=== PATIENT | female | born 1940 | race Caucasian/White ===

== ENCOUNTER 2018-11-26 21:02 | Emergency (ER) | payer MEDICARE, MEDICAID ==
[~2018-11-26] VITALS: Ht 165.1 cm; Wt 62.0 kg
[2018-11-26 21:44] LABS: BASOPHILS % 0.5 % (0.0-2.0); EOSINOPHILS % 2.7 % (0.0-5.0); HEMATOCRIT. 34.3 % (36.0-48.0); HEMOGLOBIN. 11.4 g/dL (12.0-16.0); LYMPHOCYTES % 40.2 % (20.0-50.0); MEAN CORPUSCULAR HEMOGLOBIN 31.6 pg (28.0-32.0); MEAN CORPUSCULAR VOLUME 95.3 fL (81.0-99.0); MEAN PLATELET VOLUME 9.3 fl (7.4-10.4); MONOCYTES % 12.1 % (2.0-8.0); NEUTROPHILS % 44.5 % (40.0-76.0); PLATELET 125 x1000/uL (130-400); RED BLOOD CELL COUNT 3.59 mill/uL (4.2-5.4); RED CELL DISTRIBUTION WIDTH 16.3 % (11.6-14.6)
[2018-11-26 21:46] LABS: CHLORIDE 111 mEq/L (98-107)
[2018-11-26 22:55] VITALS: BP 139/83
== END 2018-11-26 22:55 | disposition home or self-care (01) ==
LOC: ER 21:02
DX: R07.9 Chest pain, unspecified (principal); E11.9 Type 2 diabetes mellitus without complications; I10 Essential (primary) hypertension
CPT/HCPCS: 36415; 71045; 83880; 84484; 93005; 99284

== ENCOUNTER 2021-10-24 17:07 | Inpatient (IN) | payer MEDICARE, MEDICAID ==
[~2021-10-24] VITALS: Ht 157.5 cm; Wt 67.6 kg
[2021-10-24] MEDS ORDERED: MORPHINE SULFATE 4 MG/ML CPJ (NOT FOR IM USE) IV STA (18:12)
[2021-10-24 18:46] LABS: HEMOGLOBIN. 9.9 g/dL (12.0-16.0); MEAN CORPUSCULAR HEMOGLOBIN 35.6 pg (28.0-32.0); MEAN CORPUSCULAR VOLUME 111.5 fL (81.0-99.0); PLATELET 177 x1000/uL (130-400); RED BLOOD CELL COUNT 2.78 mill/uL (4.2-5.4); RED CELL DISTRIBUTION WIDTH 15.3 % (11.6-14.6)
[2021-10-24 18:54] LABS: CHLORIDE 107 mEq/L (98-107)
[2021-10-24 19:33] LABS: PLATELET ESTIMATE NORMAL
[2021-10-25] MEDS ORDERED: MORPHINE SULFATE 2 MG/ML CPJ (NOT FOR IM USE) IV ONE (09:00)
[2021-10-25 14:10] VITALS: BP 115/58
[2021-10-25] MEDS ORDERED: CLONIDINE 0.1MG TABLET PO PRN ×2 (14:30→15:30)
[2021-10-25] MEDS ORDERED: DEXTROSE 50% WATER 50ML SYRINGE IV PRN (14:45)
[2021-10-25] MEDS ORDERED: ACETAMINOPHEN 325MG TABLET PO PRN (15:30)
[2021-10-25] MEDS ORDERED: DIPHENHYDRAMINE 50MG/ML VIAL IV PRN (15:30)
[2021-10-25] MEDS ORDERED: ONDANSETRON HCL 4MG/2ML INJ IV PRN (15:30)
[2021-10-25] MEDS ORDERED: MAGNESIUM/ALUMINUM HYDROXIDE/SIMETHICONE 30ML UDC PO PRN (15:30)
[2021-10-25] MEDS ORDERED: ZOLPIDEM TARTRATE 5MG TABLET PO PRN (15:30)
[2021-10-25] MEDS ORDERED: NALOXONE HCL 0.4MG/ML VIAL IV PRN (15:45)
[2021-10-25 15:46] VITALS: BP 117/59
[2021-10-25 16:00] VITALS: BP 117/59
[2021-10-25] MEDS ORDERED: LISI2.5T47 MT (16:07)
[2021-10-25] MEDS ORDERED: GLIP5TAB12 MT (16:07)
[2021-10-25] MEDS ORDERED: GABA-529 MT (16:07)
[2021-10-25] MEDS: DOCUSATE SODIUM 100MG CAPSULE PO SCH (16:38)
[2021-10-25] MEDS: HYDROCODONE/ACETAMINOPHEN 5/325MG TABLET PO PRN (16:39)
[2021-10-25] MEDS: INSULIN LISPRO 100 UNITS/ML SUBCUT SCH ×2 (16:40→21:49)
[2021-10-25] MEDS: ENOXAPARIN 30MG/0.3ML SYR SUBCUT SCH (16:40)
[2021-10-25] MEDS: BLOOD SUGAR DIAGNOSTIC STRIP TEST SCH ×2 (16:40→21:49)
[2021-10-25 20:00] VITALS: BP 111/61
[2021-10-25] MEDS: OMEPRAZOLE 20MG CAPSULE EXTENDED RELEASE PO SCH (21:48)
[2021-10-25] MEDS: SODIUM CHLORIDE 0.9% INJ 3ML FLUSH IVF SCH (21:49)
[2021-10-26] VITALS: BP 112/63
[2021-10-26 04:00] VITALS: BP 129/66
[2021-10-26] MEDS: SODIUM CHLORIDE 0.9% INJ 3ML FLUSH IVF SCH ×3 (05:31→23:34)
[2021-10-26] MEDS: OMEPRAZOLE 20MG CAPSULE EXTENDED RELEASE PO SCH ×2 (06:22→23:33)
[2021-10-26] MEDS: BLOOD SUGAR DIAGNOSTIC STRIP TEST SCH ×4 (06:32→21:00)
[2021-10-26] MEDS: INSULIN LISPRO 100 UNITS/ML SUBCUT SCH ×4 (06:32→21:00)
[2021-10-26] MEDS: MORPHINE SULFATE 2 MG/ML CPJ (NOT FOR IM USE) IV PRN (07:57)
[2021-10-26 08:00] VITALS: BP 131/63
[2021-10-26] MEDS: DOCUSATE SODIUM 100MG CAPSULE PO SCH ×2 (09:47→18:20)
[2021-10-26 11:50] VITALS: BP 123/66
[2021-10-26] MEDS: HYDROCODONE/ACETAMINOPHEN 5/325MG TABLET PO PRN ×2 (14:23→23:12)
[2021-10-26] MEDS: ENOXAPARIN 30MG/0.3ML SYR SUBCUT SCH (18:20)
[2021-10-26 20:00] VITALS: BP 133/60
[2021-10-27] VITALS: BP 136/67
[2021-10-27 04:00] VITALS: BP 145/67
[2021-10-27] MEDS: HYDROCODONE/ACETAMINOPHEN 5/325MG TABLET PO PRN ×3 (04:44→21:28)
[2021-10-27] MEDS: SODIUM CHLORIDE 0.9% INJ 3ML FLUSH IVF SCH ×3 (06:00→21:28)
[2021-10-27 06:53] LABS: HEMATOCRIT. 27.4 % (36.0-48.0); MEAN CORPUSCULAR HEMOGLOBIN 35.8 pg (28.0-32.0); MEAN CORPUSCULAR VOLUME 108.7 fL (81.0-99.0); MEAN PLATELET VOLUME 7.9 fl (7.4-10.4); PLATELET 139 x1000/uL (130-400); RED BLOOD CELL COUNT 2.52 mill/uL (4.2-5.4); RED CELL DISTRIBUTION WIDTH 14.8 % (11.6-14.6)
[2021-10-27] MEDS: INSULIN LISPRO 100 UNITS/ML SUBCUT SCH ×4 (07:50→21:00)
[2021-10-27] MEDS: BLOOD SUGAR DIAGNOSTIC STRIP TEST SCH ×4 (07:55→21:05)
[2021-10-27 08:00] VITALS: BP 130/68
[2021-10-27 08:12] LABS: PLATELET ESTIMATE NORMAL
[2021-10-27] MEDS: DOCUSATE SODIUM 100MG CAPSULE PO SCH ×2 (09:27→17:27)
[2021-10-27] MEDS: FAMOTIDINE 20MG TABLET PO SCH (09:28)
[2021-10-27 12:00] VITALS: BP 139/74
[2021-10-27 16:00] VITALS: BP 114/54
[2021-10-27] MEDS: ENOXAPARIN 30MG/0.3ML SYR SUBCUT SCH (17:28)
[2021-10-27 20:00] VITALS: BP 135/59
[2021-10-28] VITALS: BP 123/68
[2021-10-28 04:00] VITALS: BP 106/70
[2021-10-28] MEDS: HYDROCODONE/ACETAMINOPHEN 5/325MG TABLET PO PRN ×3 (04:15→17:38)
[2021-10-28] MEDS: SODIUM CHLORIDE 0.9% INJ 3ML FLUSH IVF SCH ×3 (05:27→23:12)
[2021-10-28] MEDS: BLOOD SUGAR DIAGNOSTIC STRIP TEST SCH ×4 (06:28→21:00)
[2021-10-28] MEDS: INSULIN LISPRO 100 UNITS/ML SUBCUT SCH ×4 (07:37→21:00)
[2021-10-28 08:00] VITALS: BP 136/69
[2021-10-28] MEDS: FAMOTIDINE 20MG TABLET PO SCH (08:45)
[2021-10-28] MEDS: DOCUSATE SODIUM 100MG CAPSULE PO SCH ×2 (08:46→17:24)
[2021-10-28 12:00] VITALS: BP_SYST 131; BP_DIAS 61; BP_DIAS 65
[2021-10-28 16:00] VITALS: BP 136/68
[2021-10-28] MEDS: ENOXAPARIN 30MG/0.3ML SYR SUBCUT SCH (17:25)
[2021-10-28 20:00] VITALS: BP 103/54
[2021-10-28] MEDS: ACETAMINOPHEN 325MG TABLET PO PRN (23:20)
[2021-10-29] VITALS: BP 108/55
[2021-10-29 04:00] VITALS: BP 107/45
[2021-10-29] MEDS: SODIUM CHLORIDE 0.9% INJ 3ML FLUSH IVF SCH ×3 (06:46→22:00)
[2021-10-29] MEDS: MORPHINE SULFATE 2 MG/ML CPJ (NOT FOR IM USE) IV PRN (06:53)
[2021-10-29] MEDS: BLOOD SUGAR DIAGNOSTIC STRIP TEST SCH ×4 (07:20→21:59)
[2021-10-29] MEDS: INSULIN LISPRO 100 UNITS/ML SUBCUT SCH ×4 (07:50→21:00)
[2021-10-29 08:00] VITALS: BP 135/69
[2021-10-29] MEDS: DOCUSATE SODIUM 100MG CAPSULE PO SCH ×2 (08:58→18:04)
[2021-10-29] MEDS: FAMOTIDINE 20MG TABLET PO SCH (08:58)
[2021-10-29 12:00] VITALS: BP 122/61
[2021-10-29] MEDS: ENOXAPARIN 30MG/0.3ML SYR SUBCUT SCH (18:04)
[2021-10-29 20:00] VITALS: BP 142/71
[2021-10-29] MEDS: HYDROCODONE/ACETAMINOPHEN 5/325MG TABLET PO PRN (22:01)
[2021-10-30] VITALS (7 sets, daily range): BP systolic 120–150; BP diastolic 56–100
[2021-10-30] MEDS: BLOOD SUGAR DIAGNOSTIC STRIP TEST SCH ×4 (05:37→20:05)
[2021-10-30] MEDS: SODIUM CHLORIDE 0.9% INJ 3ML FLUSH IVF SCH ×3 (05:37→20:05)
[2021-10-30] MEDS: HYDROCODONE/ACETAMINOPHEN 5/325MG TABLET PO PRN (05:43)
[2021-10-30] MEDS: INSULIN LISPRO 100 UNITS/ML SUBCUT SCH ×4 (07:50→20:05)
[2021-10-30] MEDS: DOCUSATE SODIUM 100MG CAPSULE PO SCH ×2 (08:21→16:42)
[2021-10-30] MEDS: FAMOTIDINE 20MG TABLET PO SCH (08:21)
[2021-10-30] MEDS: MORPHINE SULFATE 2 MG/ML CPJ (NOT FOR IM USE) IV PRN (12:29)
[2021-10-30] MEDS: ENOXAPARIN 30MG/0.3ML SYR SUBCUT SCH (16:41)
[2021-10-30] MEDS: ACETAMINOPHEN 325MG TABLET PO PRN (20:53)
[2021-10-30 21:56] LABS: BASOPHILS % 0.8 % (0.0-2.0); EOSINOPHILS % 3.3 % (0.0-5.0); HEMATOCRIT. 30.3 % (36.0-48.0); HEMOGLOBIN. 9.8 g/dL (12.0-16.0); LYMPHOCYTES % 34.8 % (20.0-50.0); MEAN CORPUSCULAR HEMOGLOBIN 35.2 pg (28.0-32.0); MEAN CORPUSCULAR VOLUME 108.3 fL (81.0-99.0); MONOCYTES % 13.8 % (2.0-8.0); NEUTROPHILS % 47.3 % (40.0-76.0); PLATELET 136 x1000/uL (130-400); RED CELL DISTRIBUTION WIDTH 14.9 % (11.6-14.6)
== END 2021-10-30 22:15 | disposition short-term general hospital (02) | DRG 536 ==
LOC: ER 17:07 → 8WST 10-25 12:26 → EDBEDREQ 10-25 12:31 → EDBEDREQSVC 10-25 12:31 → EDBEDREQTM 10-25 12:32 → ENRESERV 10-25 13:17 → 6EST 10-26 16:04
PROVIDERS: ADMIT Internal Medicine; ATTEND Internal Medicine
DX: S32.401A Unspecified fracture of right acetabulum, initial encounter for closed fracture (principal); E11.9 Type 2 diabetes mellitus without complications; M81.0 Age-related osteoporosis without current pathological fracture; I10 Essential (primary) hypertension; X58.XXXA Exposure to other specified factors, initial encounter; Y93.89 Activity, other specified; Y92.89 Other specified places as the place of occurrence of the external cause; Y99.8 Other external cause status; Z79.899 Other long term (current) drug therapy; Z96.641 Presence of right artificial hip joint; Z20.822 Contact with and (suspected) exposure to COVID-19
CPT/HCPCS: 36415; 73502; 80048; 80053; 82962; 85025; 87426; 93970; 99285; C9803; J1650; J1815; J2270; J2405; U0003; U0005